=== PATIENT | male | born 1990 | race Caucasian/White ===

== ENCOUNTER 2018-03-02 19:43 | Inpatient (IN) | payer BC ==
[2018-03-02] MEDS ORDERED: Sodium Chloride 0.9% 1,000 ML IV STA (20:17)
[2018-03-02] MEDS ORDERED: levETIRAcetam 500 MG in Sodium Chloride 0.9% 100 ML IV STA (20:17)
[2018-03-02 20:53] LABS: BLOOD UREA NITROGEN 15 mg/dl (9-20); CALCIUM 10.1 mg/dL (8.4-10.2); GFR NON-AFRICAN AMERICAN > 60
[2018-03-02 20:57] LABS: BASO % 0.2 % (0.0-2.0); LYMPH # 0.9 K/uL (1.0-4.3); MEAN CELL VOLUME 90.9 fl (80.0-94.0); MEAN CORPUSCULAR HEMOGLOBIN 31.4 pg (27.0-31.0); MEAN CORPUSCULAR HGB CONC 34.6 g/dL (33.0-37.0); MEAN PLATELET VOLUME 8.7 fl (7.2-11.7); MONO # 0.6 K/uL (0.0-0.8); MONO % 3.4 % (0.0-10.0); NEUT # 16.3 K/uL (1.8-7.0); NEUT % 91.4 % (50.0-75.0); PLATELET COUNT 260 K/uL (130-400); RBC 5.09 Mil/uL (4.40-5.90); RED CELL DISTRIBUTION WIDTH 13.1 % (11.5-14.5); WHITE BLOOD COUNT 17.9 K/uL (4.8-10.8)
--- NOTE | 2018-03-02 21:32 | ED PDOC ---
HPI: Seizure Time Seen by Provider: 03/02/18 19:51 Chief Complaint (Nursing): Seizure History Per: Patient History/Exam Limitations: no limitations Recent Seizure Activity Began: Just Before Arrival Length Of Seizures (Duration): Minutes Quality Of Seizure: Generalized Additional Complaint(s): 28 year old M with history of seizure disorder and kidney stones presenting with seizure. States that normally he drinks a pint of hard liquor daily but has not drank alcohol in the past 24 hours and today and tremors and one witnessed seizure by the boyfriend, the patient does not remember this episode. States he is supposed to be taking Keppra 500mg and Klonopin 2mg but is inconsistent with the keppra and abuses the klonopin. Denies other drug use besides benzo abuse. Past Medical History Reviewed: Historical Data, Nursing Documentation, Vital Signs Vital Signs: Last Vital Signs Temp 98.4 F 03/02/18 19:45 Pulse 114 H 03/02/18 19:45 Resp 18 03/02/18 19:45 BP 142/94 H 03/02/18 19:45 Pulse Ox 100 03/02/18 19:45 - Medical History PMH: Kidney Stones, Seizures - Family History Family History: States: Unknown Family Hx - Home Medications Home Medications: Ambulatory Orders Medication Instructions Recorded Clonazepam [Klonopin] 2 mg PO DAILY 03/02/18 levETIRAcetam [Keppra] 500 mg PO DAILY 03/02/18 - Allergies Allergies/Adverse Reactions: Allergies Allergy/AdvReac Type Severity Reaction Status Date / Time No Known Allergies Allergy Verified 03/02/18 19:47 Review of Systems ROS Statement: Except As Marked, All Systems Reviewed And Found Negative Neurological: Positive for: Seizures. Negative for: Weakness, Numbness, Incoordination, Altered Mental Status Psych: Negative for: Suicidal ideation Physical Exam - Reviewed Nursing Documentation Reviewed: Yes Vital Signs Reviewed: Yes - Physical Exam Appears: Negative for: Well (Disheveled) Head Exam: Positive for: ATRAUMATIC, NORMAL INSPECTION, NORMOCEPHALIC Skin: Positive for: Normal Color, Warm, DRY Eye Exam: Positive for: EOMI, Normal appearance, PERRL ENT: Positive for: Normal ENT Inspection, Other (Tongue Fasiculations) Neck: Positive for: Normal, Painless ROM Cardiovascular/Chest: Positive for: Regular Rate, Rhythm Respiratory: Positive for: CNT, Normal Breath Sounds Gastrointestinal/Abdominal: Positive for: Normal Exam, Soft. 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 Negative for: Motor/Sensory Deficits - Laboratory Results Result Diagrams: 03/02/18 20:30 03/02/18 20:30 - ECG O2 Sat by Pulse Oximetry: 100 Pulse Ox Interpretation: Normal Medical Decision Making Medical Decision MakinPM Patient presenting with seizure after abrupt withdrawal of long-standing alcohol abuse --Patient tremulous, tachycardic, currently alert, and oriented --Patient likely suffering from alcohol abuse --Will treat with fluids, benzo, keppra 10PM --Dr. Hardin aware for admission for alcohol withdrawal with seizure --Will place in Tele for seizure precautions Disposition - Clinical Impression Clinical Impression: Alcohol withdrawal, Alcohol withdrawal seizure - Patient ED Disposition Is Patient to be Admitted: Yes - Disposition Disposition Time: 22:00 Condition: FAIR
[2018-03-02 22:03] LABS: LYMPHOCYTE 11 % (20-50); MONOCYTE 3 % (0-10); NEUTROPHIL 86 % (42-75); PLATELET ESTIMATE NORMAL (NORMAL); TOTAL CELLS COUNTED 100
[2018-03-02 22:04] LABS: ANISOCYTOSIS SLIGHT; LARGE PLATELETS PRESENT; OVALOCYTES SLIGHT; TEARDROP CELLS SLIGHT
[2018-03-02 22:20] LABS: PHENCYCLIDINE, UR NEGATIVE (NEGATIVE)
[2018-03-02 22:22] LABS: BARBITURATES, UR NEGATIVE (NEGATIVE); BENZODIAZEPINES, UR POSITIVE (NEGATIVE); OPIATES, UR POSITIVE (NEGATIVE)
[2018-03-02] MEDS ORDERED: Multivitamin (MVI) 10 ML, Thiamine 100 MG, Folic Acid 1 MG in Sodium Chloride 0.9% 1,00... IV ONE (22:53)
[2018-03-03 07:16] LABS: HEMOGLOBIN 14.3 g/dL (12.0-18.0); MEAN CELL VOLUME 90.9 fl (80.0-94.0); MEAN CORPUSCULAR HEMOGLOBIN 31.4 pg (27.0-31.0); MEAN CORPUSCULAR HGB CONC 34.5 g/dL (33.0-37.0); RBC 4.56 Mil/uL (4.40-5.90); RED CELL DISTRIBUTION WIDTH 13.1 % (11.5-14.5); WHITE BLOOD COUNT 14.2 K/uL (4.8-10.8)
[2018-03-03 07:52] LABS: LDL CHOLESTEROL 130 mg/dL (0-129)
[2018-03-03 07:54] LABS: ALB/GLOB RATIO 1.5 (1.0-2.1); ALBUMIN 4.6 g/dL (3.5-5.0); ALT/SGPT 26 U/L (21-72); AST/SGOT 29 U/L (17-59); BLOOD UREA NITROGEN 13 mg/dl (9-20); CALCIUM 9.2 mg/dL (8.4-10.2); GFR NON-AFRICAN AMERICAN > 60; HDL CHOLESTEROL 35 MG/DL (30-70)
[2018-03-03] MEDS ORDERED: CLONAZEPAM 1 MG PO SCH (09:00)
--- NOTE | 2018-03-03 10:04 | RAD ---
Date of service: 03/02/2018 HISTORY: seizure COMPARISON: No prior. FINDINGS: LUNGS: No active pulmonary disease. PLEURA: No significant pleural effusion identified, no pneumothorax apparent. CARDIOVASCULAR: No aortic atherosclerotic calcification present. Normal cardiac size. No pulmonary vascular congestion. OSSEOUS STRUCTURES: No significant abnormalities. VISUALIZED UPPER ABDOMEN: Normal. OTHER FINDINGS: None. IMPRESSION: No acute cardiopulmonary findings.
--- NOTE | 2018-03-03 12:13 | CT ---
Date of service: 03/02/2018 PROCEDURE: CT HEAD WITHOUT CONTRAST. HISTORY: seizure, head injury COMPARISON: None available. TECHNIQUE: Axial computed tomography images were obtained through the head/brain without intravenous contrast. Radiation dose: Total exam DLP = 806.3 mGy-cm. This CT exam was performed using one or more of the following dose reduction techniques: Automated exposure control, adjustment of the mA and/or kV according to patient size, and/or use of iterative reconstruction technique. FINDINGS: HEMORRHAGE: No intracranial hemorrhage. BRAIN: Normal araya-white matter differentiation and density are appreciated throughout the cerebrum and cerebellum with the brainstem appearing unremarkable as well. There is no mass effect. There is no suspicious extra-axial fluid collection and the midline brain anatomy appears diffusely unremarkable. VENTRICLES: Unremarkable. No hydrocephalus. CALVARIUM: No destructive bony lesion or displaced fracture identified including through the skullbase. PARANASAL SINUSES: Unremarkable as visualized. No significant inflammatory changes. MASTOID AIR CELLS: Unremarkable as visualized. No inflammatory changes. OTHER FINDINGS: None. IMPRESSION: Unremarkable unenhanced CT of the Head.
[2018-03-03] MEDS ORDERED: Potassium Chloride 20 mEq ER Tab PO ONE (15:39)
[2018-03-03] MEDS ORDERED: Dextrose 5%/0.45% NS 1,000 ML IV SCH (15:45)
--- NOTE | 2018-03-03 16:41 | CP.PCM.HP ---
History of Present Illness - History of Present Illness History of Present Illness: CC: Seizure. 28 y/o M, Hx of Seizure Disorder, Kidney stone, brought to ER [facility], [place] via EMS on 03/02/18 to be evaluated for Generalized Seizure activity at home on DOA before arrival to ER, witnessed by roommate, associated to nausea/vomiting, convulsions. Pt alert /oriented upon arrival of EMS. Worsening symptoms: Agitated, anxiety 2nd to alcohol withdrawal ( states normally he drink a pint of hard liquor daily, but has not drank in the last 24 hrs, also associated to opiates/methadone abuse as per Toxicology result. Aggravated factor: Non in compliance with Keppra. Pt denied Fever, diarrhea, abdominal pain, urinary symptoms, CP, palpitations, SOB, cough, AH, VH, SI, HI, sick contact, recent travel out of [facility]. Head CT: Unremarkable. CXR: No acute findings. Present on Admission - Present on Admission Any Indicators Present on Admission: No Review of Systems - Constitutional Constitutional: Other (negative) - EENT Eyes: Other (negative) Ears: Other (negative) Nose/Mouth/Throat: Other (negative) - Cardiovascular Cardiovascular: Rapid Heart Rate - Respiratory Respiratory: Other (negative) - Gastrointestinal Gastrointestinal: Nausea, Vomiting - Genitourinary Genitourinary: Other (negative) - Musculoskeletal Musculoskeletal: Other (negative) - Integumentary Integumentary: Other (negative) - Neurological Neurological: Convulsions, Tremor - Psychiatric Psychiatric: Anxiety - Endocrine Endocrine: Other (negative) - Hematologic/Lymphatic Hematologic: Other (negative) Past Patient History - Past Medical History & Family History Past Medical History?: Yes Pertinent Family History: Unknown - Past Social History Smoking Status: Light Smoker < 10 Cigarettes Daily Drugs: Opiates, Other (Methadone) Home Situation {Lives}: Other (boyfriend) - CARDIAC Hx Cardiac Disorders: No - PULMONARY Hx Respiratory Disorders: No - NEUROLOGICAL Hx Neurological Disorder: Yes Hx Seizures: Yes - HEENT Hx HEENT Problems: No - RENAL Hx Dialysis: Yes Hx Kidney Stones: Yes - ENDOCRINE/METABOLIC Hx Endocrine Disorders: No - HEMATOLOGICAL/ONCOLOGICAL Hx Blood Disorders: No - INTEGUMENTARY Hx Dermatological Problems: No - MUSCULOSKELETAL/RHEUMATOLOGICAL Hx Musculoskeletal Disorders: No Hx Falls: No - GASTROINTESTINAL Hx Gastrointestinal Disorders: No - GENITOURINARY/GYNECOLOGICAL Hx Genitourinary Disorders: No - PSYCHIATRIC Hx Psychophysiologic Disorder: Yes Hx Substance Use: Yes - SURGICAL HISTORY Hx Surgeries: Yes Hx Cholecystectomy: Yes - ANESTHESIA Hx Anesthesia: Yes Hx Anesthesia Reactions: No Hx Malignant Hyperthermia: No Has any member of the family had a problem w/ anesthesia?: No Meds Allergies/Adverse Reactions: Allergies Allergy/AdvReac Type Severity Reaction Status Date / Time No Known Allergies Allergy Verified 03/02/18 19:47 Physical Exam - Constitutional Appears: No Acute Distress - Head Exam Head Exam: NORMAL INSPECTION - Eye Exam Eye Exam: PERRL - ENT Exam ENT Exam: Normal Exam - Neck Exam Neck exam: Positive for: Normal Inspection - Respiratory Exam Respiratory Exam: NORMAL BREATHING PATTERN - Cardiovascular Exam Cardiovascular Exam: REGULAR RHYTHM - GI/Abdominal Exam GI & Abdominal Exam: Normal Bowel Sounds, Soft - Extremities Exam Extremities exam: Positive for: normal inspection - Back Exam Back exam: NORMAL INSPECTION - Neurological Exam Neurological exam: Alert, Oriented x3 Additional comments: mild tremors extremities, No focal motor/sensory deficit - Psychiatric Exam Psychiatric exam: Agitated, Anxious - Skin Skin Exam: Warm Results - Vital Signs Recent Vital Signs: Last Vital Signs Temp 97.8 F 03/03/18 15:53 Pulse 61 03/03/18 15:53 Resp 18 03/03/18 15:53 BP 132/76 03/03/18 15:53 Pulse Ox 99 03/03/18 15:53 reviewed Alexus - Labs Result Diagrams: 03/04/18 06:15 03/04/18 06:15 Labs: Laboratory Results - last 24 hr 03/02/18 03/02/18 03/02/18 20:30 20:30 21:07 WBC 17.9 H RBC 5.09 Hgb 16.0 Hct 46.3 MCV 90.9 MCH 31.4 H MCHC 34.6 RDW 13.1 Plt Count 260 MPV 8.7 Neut % (Auto) 91.4 H Lymph % (Auto) 5.0 L Moody % (Auto) 3.4 Eos % (Auto) 0.0 Baso % (Auto) 0.2 Neut # (Auto) 16.3 H Lymph # (Auto) 0.9 L Moody # (Auto) 0.6 Eos # (Auto) 0.0 Baso # (Auto) 0.0 Neutrophils % (Manual) 86 H Lymphocytes % (Manual) 11 L Monocytes % (Manual) 3 Platelet Estimate Normal Large Platelets Present Anisocytosis (manual) Slight Macrocytosis (manual) Slight Tear Drop Cells Slight Ovalocytes Slight Sodium 135 Potassium 3.8 Chloride 98 Carbon Dioxide 19 L Anion Gap 22 H BUN 15 Creatinine 0.9 Est GFR ( Amer) > 60 Est GFR (Non-Af Amer) > 60 Random Glucose 141 H Calcium 10.1 Magnesium 2.2 Total Bilirubin AST ALT Alkaline Phosphatase Total Protein Albumin Globulin Albumin/Globulin Ratio Triglycerides Cholesterol LDL Cholesterol Direct HDL Cholesterol TSH 3rd Generation Urine Opiates Screen Positive H Urine Methadone Screen Positive H Ur Barbiturates Screen Negative Ur Phencyclidine Scrn Negative Ur Amphetamines Screen Negative U Benzodiazepines Scrn Positive U Oth Cocaine Metabols Negative U Cannabinoids Screen Negative Alcohol, Quantitative < 10 03/03/18 03/03/18 04:00 06:45 WBC 14.2 H RBC 4.56 Hgb 14.3 Hct 41.5 MCV 90.9 MCH 31.4 H MCHC 34.5 RDW 13.1 Plt Count 224 MPV Neut % (Auto) Lymph % (Auto) Moody % (Auto) Eos % (Auto) Baso % (Auto) Neut # (Auto) Lymph # (Auto) Moody # (Auto) Eos # (Auto) Baso # (Auto) Neutrophils % (Manual) Lymphocytes % (Manual) Monocytes % (Manual) Platelet Estimate Large Platelets Anisocytosis (manual) Macrocytosis (manual) Tear Drop Cells Ovalocytes Sodium 139 Potassium 3.5 L Chloride 102 Carbon Dioxide 27 Anion Gap 14 BUN 13 Creatinine 0.8 Est GFR ( Amer) > 60 Est GFR (Non-Af Amer) > 60 Random Glucose 106 Calcium 9.2 Magnesium Total Bilirubin 1.0 AST 29 ALT 26 Alkaline Phosphatase 59 Total Protein 7.7 Albumin 4.6 Globulin 3.0 Albumin/Globulin Ratio 1.5 Triglycerides 140 Cholesterol 178 LDL Cholesterol Direct 130 H HDL Cholesterol 35 TSH 3rd Generation 0.11 L Urine Opiates Screen Urine Methadone Screen Ur Barbiturates Screen Ur Phencyclidine Scrn Ur Amphetamines Screen U Benzodiazepines Scrn U Oth Cocaine Metabols U Cannabinoids Screen Alcohol, Quantitative reviewed J.P. - Imaging and Cardiology CT scan - head Status: Report reviewed by me (J.P.) Chest x-ray Status: Report reviewed by me (J.P.) Assessment & Plan (1) Alcohol withdrawal seizure Status: Acute Priority: High (2) History of alcohol abuse Status: Chronic Priority: High (3) Opioid abuse Status: Acute Priority: High (4) Methadone use disorder, mild, abuse Status: Acute Priority: High (5) Seizure disorder Status: Acute - Assessment and Plan (Free Text) Plan: F/U EKG, continue Keppra, Ativan, Klonopin, Protonix, Zofran and rest of Tx. - Date & Time Date: 03/03/18 Time: 11:30
--- NOTE | 2018-03-03 20:54 | CARD ---
APPROVED REPORT Date of service: 03/02/2018 EKG Measurement Heart [id number] <Conclusion> Normal sinus rhythm Normal ECG
[2018-03-04 08:35] LABS: ALB/GLOB RATIO 1.5 (1.0-2.1); ALBUMIN 4.3 g/dL (3.5-5.0); ALT/SGPT 37 U/L (21-72); AST/SGOT 71 U/L (17-59); BLOOD UREA NITROGEN 10 mg/dl (9-20); CALCIUM 9.1 mg/dL (8.4-10.2); GFR NON-AFRICAN AMERICAN > 60
[2018-03-04 08:39] LABS: HEMOGLOBIN 13.6 g/dL (12.0-18.0); MEAN CELL VOLUME 90.5 fl (80.0-94.0); MEAN CORPUSCULAR HEMOGLOBIN 32.3 pg (27.0-31.0); MEAN CORPUSCULAR HGB CONC 35.7 g/dL (33.0-37.0); RBC 4.22 Mil/uL (4.40-5.90); RED CELL DISTRIBUTION WIDTH 12.8 % (11.5-14.5); WHITE BLOOD COUNT 10.8 K/uL (4.8-10.8)
--- NOTE | 2018-03-04 12:01 | CP.PCM.CON ---
History of Present Illness - History of Present Illness History of Present Illness: Psychiatry consult CC: "I had a seizure from alcohol withdrawal." HPI: 28 yo male w/ h/o alcohol abuse, heroin abuse presents w/ seizures in the context of alcohol, opioid and benzodiazepine abuse and non-compliance with Keppra. Patient denies current heroin abuse, but patient had urine toxicology positive for Benzo, Opiates and Methadone. Patient reports that he has intermittent feelings of anxiety, but denies acute depression/AH/VH/SI/HI. PPHx: >10 substance abuse rehabs; +Outpatient psychiatry- reports that he is prescribed Adderall, Ambien and Klonopin; unclear if this is true PMHx: Seizure Disorder; Kidney Stones ALL: NKDA SHx: Lives w/ bf; h/o incarceration for possession of heroin; +drinks 3 pints alcohol/day; denies current opioid abuse, but Utox + for Opiates and Methadone; denies cig us Impression: 28 yo male w/ Alcohol Use Disorder, Opioid Use Disorder, Benzodiazepine Use Disorder. -Recommend to treat patient for alcohol withdrawal as per [facility] protocol -Recommend to gradually taper and stop Klonopin -Recommend alcohol/substance abuse rehab when patient is medically stable; patient is not sure if he wants rehab at this time but would benefit from referral to social service technician to discuss treatment options -No acute psychiatric admission indicated at this time. Past Patient History - Past Medical History & Family History Past Medical History?: Yes - Past Social History Smoking Status: Light Smoker < 10 Cigarettes Daily - CARDIAC Hx Cardiac Disorders: No - PULMONARY Hx Respiratory Disorders: No - NEUROLOGICAL Hx Seizures: Yes - HEENT Hx HEENT Problems: No - RENAL Hx Kidney Stones: Yes - ENDOCRINE/METABOLIC Hx Endocrine Disorders: No - HEMATOLOGICAL/ONCOLOGICAL Hx Blood Disorders: No - INTEGUMENTARY Hx Dermatological Problems: No - MUSCULOSKELETAL/RHEUMATOLOGICAL Hx Musculoskeletal Disorders: No Hx Falls: No - GASTROINTESTINAL Hx Gastrointestinal Disorders: No - GENITOURINARY/GYNECOLOGICAL Hx Genitourinary Disorders: No - PSYCHIATRIC Hx Substance Use: Yes - SURGICAL HISTORY Hx Surgeries: Yes Hx Cholecystectomy: Yes - ANESTHESIA Hx Anesthesia: Yes Hx Anesthesia Reactions: No Hx Malignant Hyperthermia: No Has any member of the family had a problem w/ anesthesia?: No Meds Allergies/Adverse Reactions: Allergies Allergy/AdvReac Type Severity Reaction Status Date / Time No Known Allergies Allergy Verified 03/02/18 19:47 - Medications Medications: Current Medications Clonazepam (Klonopin) 1 mg PO Q12 [facility] Last Admin: 03/04/18 08:16 Dose: 1 mg Dextrose/Sodium Chloride (Dextrose 5%/0.45% Ns 1000 Ml) 1,000 mls @ 80 mls/hr IV .[id number] [facility] Stop: 03/04/18 15:35 Last Admin: 03/03/18 16:44 Dose: 80 mls/hr Levetiracetam (Keppra) 250 mg PO Q12 [facility] Last Admin: 03/04/18 08:16 Dose: 250 mg Lorazepam (Ativan) 1 mg IVP Q4 PRN PRN Reason: Agitation Last Admin: 03/04/18 10:26 Dose: 1 mg Ondansetron HCl (Zofran Inj) 4 mg IVP Q4 PRN PRN Reason: Nausea/Vomiting Last Admin: 03/04/18 08:13 Dose: 4 mg Pantoprazole Sodium (Protonix Inj) 40 mg IVP DAILY [facility] Last Admin: 03/04/18 08:17 Dose: 40 mg Results - Vital Signs Recent Vital Signs: Last Vital Signs Temp 98.5 F 03/04/18 08:06 Pulse 50 L 03/04/18 09:00 Resp 18 03/04/18 08:06 BP 135/74 03/04/18 08:06 Pulse Ox 98 03/04/18 08:06 - Labs Result Diagrams: 03/04/18 06:15 03/04/18 06:15 Labs: Laboratory Results - last 24 hr 03/04/18 03/04/18 06:15 06:15 WBC 10.8 RBC 4.22 L Hgb 13.6 Hct 38.2 MCV 90.5 MCH 32.3 H MCHC 35.7 RDW 12.8 Plt Count 201 Sodium 137 Potassium 3.6 Chloride 97 L Carbon Dioxide 28 Anion Gap 16 BUN 10 Creatinine 0.8 Est GFR ( Amer) > 60 Est GFR (Non-Af Amer) > 60 Random Glucose 113 H Calcium 9.1 Total Bilirubin 1.0 AST 71 H D ALT 37 Alkaline Phosphatase 54 Total Protein 7.1 Albumin 4.3 Globulin 2.8 Albumin/Globulin Ratio 1.5
[2018-03-04] MEDS: Dextrose 5%/0.45% NS 1,000 ML IV SCH (14:06)
[2018-03-04] MEDS ORDERED: Bismuth Subsalicylate 262 mg Chew Tab PO PRN (16:34)
--- NOTE | 2018-03-04 17:03 | CP.PCM.PN ---
Subjective - Date & Time of Evaluation Date of Evaluation: 03/04/18 Time of Evaluation: 12:30 - Subjective Subjective: F/U Seizure anxious, Patient's family at bedside Objective - Vital Signs/Intake and Output Vital Signs (last 24 hours): Temp Pulse Resp BP Pulse Ox 98.9 F 45 L 20 116/68 98 03/04/18 16:05 03/04/18 16:05 03/04/18 16:05 03/04/18 16:05 03/04/18 16:05 - Medications Medications: Current Medications Bismuth Subsalicylate (Pepto Bismol) 524 mg PO Q6 PRN PRN Reason: Diarrhea Clonazepam (Klonopin) 1 mg PO Q12 [facility] Last Admin: 03/04/18 08:16 Dose: 1 mg Dextrose/Sodium Chloride (Dextrose 5%/0.45% Ns 1000 Ml) 1,000 mls @ 80 mls/hr IV .[id number] [facility] Stop: 03/05/18 13:45 Last Admin: 03/04/18 14:06 Dose: 80 mls/hr Levetiracetam (Keppra) 250 mg PO Q12 [facility] Last Admin: 03/04/18 08:16 Dose: 250 mg Lorazepam (Ativan) 1 mg IVP Q4 PRN PRN Reason: Agitation Last Admin: 03/04/18 14:36 Dose: 1 mg Ondansetron HCl (Zofran Inj) 4 mg IVP Q4 PRN PRN Reason: Nausea/Vomiting Last Admin: 03/04/18 08:13 Dose: 4 mg Pantoprazole Sodium (Protonix Inj) 40 mg IVP DAILY [facility] Last Admin: 03/04/18 08:17 Dose: 40 mg - Labs Labs: 03/04/18 06:15 03/04/18 06:15 - Constitutional Appears: No Acute Distress - Head Exam Head Exam: NORMAL INSPECTION - Eye Exam Eye Exam: PERRL - ENT Exam ENT Exam: Normal Exam - Neck Exam Neck Exam: Normal Inspection - Respiratory Exam Respiratory Exam: NORMAL BREATHING PATTERN - Cardiovascular Exam Cardiovascular Exam: REGULAR RHYTHM - GI/Abdominal Exam GI & Abdominal Exam: Soft, Normal Bowel Sounds - Extremities Exam Extremities Exam: Normal Inspection - Back Exam Back Exam: NORMAL INSPECTION - Neurological Exam Neurological Exam: Alert, Oriented x3 Additional comments: Mild tremors extremities, no focal motor/sensory deficit. - Psychiatric Exam Psychiatric exam: Anxious - Skin Skin Exam: Warm Assessment and Plan (1) Alcohol withdrawal seizure Status: Acute (2) Anxiety Status: Acute (3) Benzodiazepine withdrawal with complication Status: Acute (4) Bradycardia Status: Acute (5) History of substance abuse Status: Acute (6) Methadone use disorder, mild, abuse Status: Acute (7) Opioid abuse Status: Acute (8) Seizure disorder Status: Acute - Assessment and Plan (Free Text) Plan: Bradycardia, ECHO, f/iu Cardiac consult, coninue Ativan, Keppra, Klonopin and rest of Tx
--- NOTE | 2018-03-04 21:28 | CP.PCM.CON ---
History of Present Illness - History of Present Illness History of Present Illness: ASKED TO SEE PT FOR BRADYCARDIA. PT ADMITTED WITH SEIZURE X 1. HE STATES HE RAN OUT OF [employer] FOR 3 DAYS AND DRANK ALCOHOL TO ATTEMPT TO SUPPRESS SEIZURE. PT DENIES ANY CP, SOB, PALP, LH, DIZZINESS PRIOR TO SZ. HE WAS LAYING ON COUCH WHEN HE HAD HIS SZ. PT HAS NO HX OF HEART DISEASE. NO FAM HX OF SCD OR CAD. PTS HR IS 49 BPM ON TELE. HE DENIES SYNCOPAL EPISODES OUTSIDE OF HIS PRIOR SZ. Review of Systems - Constitutional Constitutional: As Per HPI. absent: Anorexia, Chills, Daytime Sleepiness, Excessive Sweating, Fatigue, Fever, Frequent Falls, Headache, Increased Appetite, Lethargy, Malaise, Night Sweats, Snoring, Sleep Apnea, Weight Gain, Weight Loss, Weakness, Other - EENT Eyes: As Per HPI. absent: Blind Spots, Blurred Vision, Change in Vision, Decreased Night Vision, Diplopia, Discharge, Dry Eye, Exophthalmos, Floaters, Irritation, Itchy Eyes, Loss of Peripheral Vision, Pain, Photophobia, Requires Corrective Lenses, Sees Flashes, Spots in Vision, Tunnel Vision, Other Visual Disturbances, Loss of Vision, Other Ears: As Per HPI. absent: Decreased Hearing, Ear Discharge, Ear Pain, Tinnitus, Abnormal Hearing, Disequilibrium, Dizziness, Other Nose/Mouth/Throat: As Per HPI. absent: Epistaxis, Nasal Congestion, Nasal Discharge, Nasal Obstruction, Nasal Trauma, Nose Pain, Post Nasal Drip, Sinus Pain, Sinus Pressure, Bleeding Gums, Change in Voice, Dental Pain, Dry Mouth, Dysphagia, Halitosis, Hoarsness, Lip Swelling, Mouth Lesions, Mouth Pain, Od ynophagia, Sore Throat, Throat Swelling, Tongue Swelling, Facial Pain, Neck Pain, Neck Mass, Other - Cardiovascular Cardiovascular: As Per HPI. absent: Acrocyanosis, Chest Pain, Chest Pain at Rest, Chest Pain with Activity, Claudication, Diaphoresis, Dyspnea, Dyspnea on Exertion, Edema, Irregular Heart Rhythm, Pain Radiating to Arm/Neck/Jaw, Leg Edema, Leg Ulcers, Lightheadedness, Orthopnea, Palpitations, Paroxysmal Nocturnal Dyspnea, Pedal Edema, Radiating Pain, Rapid Heart Rate, Slow Heart Rate, Syncope, Other - Respiratory Respiratory: As Per HPI. absent: Cough, Dyspnea, Hemoptysis, Dyspnea on Exertion, Wheezing, Snoring, Stridor, Pain on Inspiration, Chest Congestion, Excessive Mucous Production, Change in Mucous Color, Pain with Coughing, Other - Gastrointestinal Gastrointestinal: As Per HPI. absent: Abdominal Pain, Belching, Bloating, Change in Bowel Habits, Change in Stool Character, Coffee Ground Emesis, Constipation, Cramping, Diarrhea, Dyspepsia, Dysphagia, Early Satiety, Excessive Flatus, Fecal Incontinence, Heartburn, Hematemesis, Hematochezia, Loose Stools, Melena, Nausea, Odynophagia, Temesmus, Vomiting, Other - Genitourinary Genitourinary: As Per HPI. absent: Change in Urinary Stream, Difficulty Urinating, Dysuria, Flank Pain, Hematuria, Pyuria, Nocturia, Urinary Incontinence, Urinary Frequency, Urinary Hesitance, Urinary Urgency, Voiding Freq/Small Amts, Freq UTI, Hx Renal/Bladder Calculi, Hx /Renal Surgery, Bladder Distension, Other - Reproductive: Male Reproductive:Male: As Per HPI - Musculoskeletal Musculoskeletal: As Per HPI. absent: Abnormal Gait, Arthralgias, Atrophy, Back Pain, Deformity, Joint Swelling, Limited Range of Motion, Loss of Height, Muscle Cramps, Muscle Weakness, Myalgias, Neck Pain, Numbness, Radiating Pain into Limb, Stiffness, Tingling, Other - Integumentary Integumentary: As Per HPI. absent: Acne, Alopecia, Bleeding Lesions, Change in Hair, Change in Nails, Change in Pigmentation, Changing Lesions, Dry Skin, Erythema, Furuncle, Hirsutism, Lesions, New Lesions, Non-Healing Lesions, Photosensitivity, Pruritus, Rash, Skin Pain, Skin Ulcer, Sores, Striae, Swelling, Unusual Bruising, Wounds, Jaundice, Other - Neurological Neurological: As Per HPI. absent: Abnormal Gait, Abnormal Hearing, Abnormal Movements, Abnormal Speech, Behavioral Changes, Burning Sensations, Confusion, Convulsions, Disequilibrium, Dizziness, Numbness, Focal Weakness, Frequent Falls, Headaches, Lack of Coordination, Loss of Vision, Memory Loss, Paresthesias, Radicular Pain, Restless Legs, Sensory Deficit, Syncope, Tingling, Tremor, Vertigo, Weakness, Other Visual Disturbances, Other - Psychiatric Psychiatric: As Per HPI. absent: Abnormal Sleep Pattern, Anhedonia, Anxiety, Auditory Hallucinations, Behavioral Changes, Change in Appetite, Change in Libido, Confusion, Depression, Difficulty Concentrating, Hallucinations, Homicidal Ideation, Hopelessness, Irritability, Memory Loss, Mood Swings, Panic Attacks, Paranoia, Suicidal Ideation, Visual Hallucinations, Tactile Hallucinations, Other - Endocrine Endocrine: As Per HPI. absent: Change in Body Appearance, Change in Libido, Cold Intolorance, Deepening of Voice, Excessive Sweating, Fatigue, Flushing, Heat Intolorance, Increase in Ring/Shoe/Hat Size, Palpitations, Polydipsia, Polyphagia, Polyuria, Other - Hematologic/Lymphatic Hematologic: As Per HPI. absent: Easy Bleeding, Easy Bruising, Lymphadenopathy, Other Past Patient History - Past Medical History & Family History Past Medical History?: Yes - Past Social History Smoking Status: Former Smoker Chewing Tobacco Use: No Cigar Use: No Alcohol: Occasional Drugs: Opiates, Other (Methadone) Home Situation {Lives}: With Family Domestic Violence: Negative - CARDIAC Hx Cardiac Disorders: No - PULMONARY Hx Respiratory Disorders: No - NEUROLOGICAL Hx Neurological Disorder: Yes Hx Seizures: Yes - HEENT Hx HEENT Problems: No - RENAL Hx Dialysis: Yes Hx Kidney Stones: Yes - ENDOCRINE/METABOLIC Hx Endocrine Disorders: No - HEMATOLOGICAL/ONCOLOGICAL Hx Blood Disorders: No - INTEGUMENTARY Hx Dermatological Problems: No - MUSCULOSKELETAL/RHEUMATOLOGICAL Hx Musculoskeletal Disorders: No Hx Falls: No - GASTROINTESTINAL Hx Gastrointestinal Disorders: No - GENITOURINARY/GYNECOLOGICAL Hx Genitourinary Disorders: No - PSYCHIATRIC Hx Psychophysiologic Disorder: Yes Hx Substance Use: Yes - SURGICAL HISTORY Hx Surgeries: Yes Hx Cholecystectomy: Yes - ANESTHESIA Hx Anesthesia: Yes Hx Anesthesia Reactions: No Hx Malignant Hyperthermia: No Has any member of the family had a problem w/ anesthesia?: No Meds Home Medications: Home Medication List Medication Instructions Recorded Confirmed Type chlordiazePOXIDE [Chlordiazepoxide 10 mg PO Q12 #10 cap 03/05/18 Rx HCl] levETIRAcetam [Keppra] 500 mg PO DAILY #30 tab 03/05/18 Rx Allergies/Adverse Reactions: Allergies Allergy/AdvReac Type Severity Reaction Status Date / Time No Known Allergies Allergy Verified 03/02/18 19:47 - Medications Medications: Current Medications Bismuth Subsalicylate (Pepto Bismol) 524 mg PO Q6 PRN PRN Reason: Diarrhea Clonazepam (Klonopin) 1 mg PO Q12 [facility] Last Admin: 03/04/18 20:01 Dose: 1 mg Dextrose/Sodium Chloride (Dextrose 5%/0.45% Ns 1000 Ml) 1,000 mls @ 80 mls/hr I V .[id number] [facility] Stop: 03/05/18 13:45 Last Admin: 03/04/18 14:06 Dose: 80 mls/hr Levetiracetam (Keppra) 250 mg PO Q12 [facility] Last Admin: 03/04/18 20:01 Dose: 250 mg Lorazepam (Ativan) 1 mg IVP Q4 PRN PRN Reason: Agitation Last Admin: 03/04/18 20:01 Dose: 1 mg Ondansetron HCl (Zofran Inj) 4 mg IVP Q4 PRN PRN Reason: Nausea/Vomiting Last Admin: 03/04/18 08:13 Dose: 4 mg Pantoprazole Sodium (Protonix Inj) 40 mg IVP DAILY [facility] Last Admin: 03/04/18 08:17 Dose: 40 mg Zolpidem Tartrate (Ambien) 5 mg PO ONCE ONE Stop: 03/04/18 22:01 Physical Exam - Constitutional Appears: Non-toxic - Head Exam Head Exam: ATRAUMATIC, NORMAL INSPECTION, NORMOCEPHALIC - Eye Exam Eye Exam: EOMI, Normal appearance, PERRL. absent: Conjunctival injection, Nystagmus, Periorbital swelling, Periorbital tenderness, Scleral icterus Pupil Exam: NORMAL ACCOMODATION, PERRL. absent: Fixed, Irregular, Miosis, Mydriatic, Unequal - ENT Exam ENT Exam: Mucous Membranes Moist, Normal Exam. absent: Mucous Membranes Dry, Normal External Ear Exam, Normal Oropharynx, TM's Normal Bilaterally - Neck Exam Neck exam: Positive for: Normal Inspection. Negative for: Full Rom, Lymphadenopathy, Meningismus, Tenderness, Thyromegaly - Respiratory Exam Respiratory Exam: Clear to Auscultation Bilateral, NORMAL BREATHING PATTERN. absent: Accessory Muscle Use, Chest Wall Tenderness, Decreased Breath Sounds, Prolonged Expiratory Phase, Rales, Rhonchi, Wheezes, Respiratory Distress, Stridor - Cardiovascular Exam Cardiovascular Exam: REGULAR RHYTHM, +S1, +S2, Systolic Murmur. absent: Bradycardia, Tachycardia, Clicks, Diastolic murmur, Gallop, Irregular Rhythm, JVD, RRR, Rubs, +S4 - GI/Abdominal Exam GI & Abdominal Exam: Normal Bowel Sounds, Soft. absent: Bruit, Diminished Bowel Sounds, Distended, Firm, Guarding, Hernia, Hyperactive Bowel Sounds, Hypoactive Bowel Sounds, Mass, Organomegaly, Pulsatile Mass, Rebound, Rigid, Tenderness - Rectal Exam Rectal Exam: Deferred - Exam Exam: Circumcision, NORMAL INSPECTION. absent: Scrotal Swelling, Testicular Tenderness, Uretheral Discharge, Testicular Vertical Lie, Bladder Distension External exam: NORMAL EXTERNAL EXAM. absent: Ecchymosis, Erythema, Lacerations, Lesions, Swelling Speculum exam: NORMAL SPECULUM EXAM. absent: Cervical Discharge, Erythema, Foreign Body, Laceration, Tissue, Vaginal Bleeding, Vaginal Discharge Bimanual exam: NORMAL BIMANUAL EXAM. absent: Adenexal Mass, Adnexal, Cervical Motion Tendernes, Uterine Enlargement, Uterine Tenderness - Extremities Exam Extremities exam: Positive for: normal inspection, pedal pulses present. Negative for: calf tenderness, full ROM, joint swelling, normal capillary refill, pedal edema, tenderness - Back Exam Back exam: NORMAL INSPECTION. absent: CVA tenderness (L), CVA tenderness (R), FULL ROM, muscle spasm, paraspinal tenderness, rash noted, tenderness, vertebral tenderness - Neurological Exam Neurological exam: Alert, CN II-XII Intact, Normal Gait, Oriented x3, Reflexes Normal - Psychiatric Exam Psychiatric exam: Normal Affect, Normal Mood - Skin Skin Exam: Dry, Intact, Normal Color, Warm Results - Vital Signs Recent Vital Signs: Last Vital Signs Temp 98.2 F 03/04/18 20:35 Pulse 50 L 03/04/18 20:35 Resp 20 03/04/18 20:35 BP 137/79 03/04/18 20:35 Pulse Ox 98 03/04/18 20:35 - Labs Result Diagrams: 03/04/18 06:15 03/04/18 06:15 Labs: Laboratory Results - last 24 hr 03/04/18 03/04/18 06:15 06:15 WBC 10.8 RBC 4.22 L Hgb 13.6 Hct 38.2 MCV 90.5 MCH 32.3 H MCHC 35.7 RDW 12.8 Plt Count 201 Sodium 137 Potassium 3.6 Chloride 97 L Carbon Dioxide 28 Anion Gap 16 BUN 10 Creatinine 0.8 Est GFR ( Amer) > 60 Est GFR (Non-Af Amer) > 60 Random Glucose 113 H Calcium 9.1 Total Bilirubin 1.0 AST 71 H D ALT 37 Alkaline Phosphatase 54 Total Protein 7.1 Albumin 4.3 Globulin 2.8 Albumin/Globulin Ratio 1.5 - EKG Data EKG Interpreted by: Myself EKG shows normal: Sinus rhythm Rate: Bradycardia Assessment & Plan (1) Bradycardia Status: Acute (2) Benzodiazepine withdrawal with complication Status: Acute (3) Seizure disorder Status: Acute (4) History of substance abuse Status: Acute (5) Anxiety Status: Acute - Assessment and Plan (Free Text) Plan: PTS HR INCREASES WITH MOVEMENT. NO EVIDENCE OF HIGH GRADE HEART BLOCK. CHECK ECHO IN AM TO EVAL FOR STRUCTURAL HEART DISEASE. NO AVN BLOCKERS. 45 MIN TOTAL CARE TIME.
[2018-03-05] MEDS: Dextrose 5%/0.45% NS 1,000 ML IV SCH (04:02)
[2018-03-05 07:45] VITALS: PULSE 54; RESP 20
[2018-03-05 12:08] VITALS: BP 125/72; TEMP 98.4; O2SAT 98
--- NOTE | 2018-03-05 12:30 | CP.PCM.PN ---
Subjective - Date & Time of Evaluation Date of Evaluation: 03/05/18 Time of Evaluation: 12:30 - Subjective Subjective: no further complaints or seizures no syncope echo prelim, nml ef. Objective - Vital Signs/Intake and Output Vital Signs (last 24 hours): Temp Pulse Resp BP Pulse Ox 98.4 F 54 L 20 125/72 98 03/05/18 12:07 03/05/18 12:07 03/05/18 12:07 03/05/18 12:07 03/05/18 12:07 - Medications Medications: Current Medications Bismuth Subsalicylate (Pepto Bismol) 524 mg PO Q6 PRN PRN Reason: Diarrhea Clonazepam (Klonopin) 1 mg PO Q12 [facility] Last Admin: 03/05/18 08:47 Dose: 1 mg Dextrose/Sodium Chloride (Dextrose 5%/0.45% Ns 1000 Ml) 1,000 mls @ 80 mls/hr IV .[id number] [facility] Stop: 03/05/18 13:45 Last Admin: 03/05/18 04:02 Dose: 80 mls/hr Levetiracetam (Keppra) 250 mg PO Q12 [facility] Last Admin: 03/05/18 08:38 Dose: 250 mg Lorazepam (Ativan) 1 mg IVP Q4 PRN PRN Reason: Agitation Last Admin: 03/05/18 08:47 Dose: 1 mg Ondansetron HCl (Zofran Inj) 4 mg IVP Q4 PRN PRN Reason: Nausea/Vomiting Last Admin: 03/04/18 08:13 Dose: 4 mg Pantoprazole Sodium (Protonix Inj) 40 mg IVP DAILY [facility] Last Admin: 03/05/18 08:39 Dose: 40 mg - Labs Labs: 03/04/18 06:15 03/04/18 06:15 - Constitutional Appears: Well - Head Exam Head Exam: ATRAUMATIC, NORMAL INSPECTION, NORMOCEPHALIC - Eye Exam Eye Exam: EOMI, Normal appearance, PERRL. absent: Conjunctival injection, Nystagmus, Periorbital swelling, Periorbital tenderness, Scleral icterus Pupil Exam: NORMAL ACCOMODATION, PERRL - ENT Exam ENT Exam: Mucous Membranes Moist, Normal Exam. absent: Mucous Membranes Dry, Normal External Ear Exam, Normal Oropharynx, TM's Normal Bilaterally - Neck Exam Neck Exam: Full ROM, Normal Inspection. absent: Lymphadenopathy, Meningismus, Tenderness, Thyromegaly - Respiratory Exam Respiratory Exam: Clear to Ausculation Bilateral, NORMAL BREATHING PATTERN. absent: Accessory Muscle Use, Chest Wall Tenderness, Decreased Breath Sounds, Prolonged Expiratory Phase, Rales, Rhonchi, Wheezes, Respiratory Distress, Stridor - Cardiovascular Exam Cardiovascular Exam: REGULAR RHYTHM, +S1, +S2, Murmur. absent: Bradycardia, Tachycardia, Clicks, Diastolic murmur, Gallop, Irregular Rhythm, JVD, RRR, Rubs, +S4 - GI/Abdominal Exam GI & Abdominal Exam: Soft, Normal Bowel Sounds. absent: Bruit, Distended, Firm, Guarding, Rigid, Tenderness, Diminished Bowel Sounds, Hernia, Hyperactive Bowel Sounds, Hypoactive Bowel Sounds, Organomegaly, Pulsatile Mass, Rebound, Mass - Rectal Exam Rectal Exam: Deferred - Extremities Exam Extremities Exam: Full ROM, Normal Capillary Refill, Normal Inspection. absent: Calf Tenderness, Joint Swelling, Pedal Edema, Tenderness - Back Exam Back Exam: NORMAL INSPECTION. absent: CVA tenderness (L), CVA tenderness (R), Full ROM, muscle spasm, paraspinal tenderness, rash noted, tenderness, vertebral tenderness - Neurological Exam Neurological Exam: Alert, Awake, CN II-XII Intact, Normal Gait, Oriented x3. absent: Abnormal Gait, Altered, Motor Sensory Deficit, Reflexes Normal - Psychiatric Exam Psychiatric exam: Normal Affect, Normal Mood. absent: Agitated, Anxious, Depressed, Flat Affect, Homicidal Ideation, Manic, Suicidal Ideation - Skin Skin Exam: Dry, Intact, Normal Color, Warm. absent: Abrasion, Cyanosis, Diaphoretic, Erythema, Mottled, Pallor, Pallor, Petechiae, Rash, Urticaria, Vesicles Assessment and Plan (1) Benzodiazepine withdrawal with complication Status: Acute (2) Seizure disorder Status: Acute (3) History of substance abuse Status: Acute (4) Anxiety Status: Acute (5) Bradycardia Status: Acute - Assessment and Plan (Free Text) Plan: PT STABLE FROM CARDIAC PERSPECTIVE. IF DIZZINESS OR SYNCOPE OCCUR THEN HE SHOULD F/U OUTPT.
--- NOTE | 2018-03-05 16:56 | CP.PCM.DIS ---
Provider - Provider Date of Admission: 03/04/18 12:39 Attending physician: Bismark Buchanan MD Consults: 03/04/18 06:38 Psychiatry Consult Routine Comment: Consulting Provider: Haydee Hernandez Consulting Physician: Haydee Hernandez Reason for Consult: pt on klonopin 03/04/18 12:28 Social Work Referral Routine Comment: for substance abuse rehab Physician Instructions: Reason For Exam: for substance abuse rehab Social Work Referral Routine Comment: for substance abuse reab Physician Instructions: Reason For Exam: Refer to substance abuse treatment if agreeable 03/04/18 13:44 Neurology Consult Routine Comment: seizure Consulting Provider: Yaw Carrasquillo Consulting Physician: Yaw Carrasquillo Reason for Consult: seizure, etoh withdrawal 03/04/18 13:55 Cardiology Consult Routine Comment: sinus bradycardia Consulting Provider: Uday Reynolds Consulting Physician: Uday Reynolds Reason for Consult: sinus bradycardia Diagnosis - Discharge Diagnosis (1) Alcohol withdrawal seizure Status: Acute Priority: High (2) Anxiety Status: Acute (3) Benzodiazepine withdrawal with complication Status: Acute (4) Bradycardia Status: Acute (5) History of substance abuse Status: Acute (6) Methadone use disorder, mild, abuse Status: Acute Priority: High (7) Opioid abuse Status: Acute Priority: High (8) Seizure disorder Status: Acute Hospital Course - Lab Results Lab Results: Most Recent Lab Values WBC 10.8 K/uL (4.8-10.8) 03/04/18 06:15 RBC 4.22 Mil/uL (4.40-5.90) L 03/04/18 06:15 Hgb 13.6 g/dL (12.0-18.0) 03/04/18 06:15 Hct 38.2 % (35.0-51.0) 03/04/18 06:15 MCV 90.5 fl (80.0-94.0) 03/04/18 06:15 MCH 32.3 pg (27.0-31.0) H 03/04/18 06:15 MCHC 35.7 g/dL (33.0-37.0) 03/04/18 06:15 RDW 12.8 % (11.5-14.5) 03/04/18 06:15 Plt Count 201 K/uL (130-400) 03/04/18 06:15 MPV 8.7 fl (7.2-11.7) 03/02/18 20:30 Neut % (Auto) 91.4 % (50.0-75.0) H 03/02/18 20:30 Lymph % (Auto) 5.0 % (20.0-40.0) L 03/02/18 20:30 [place] % (Auto) 3.4 % (0.0-10.0) 03/02/18 20:30 Eos % (Auto) 0.0 % (0.0-4.0) 03/02/18 20:30 Baso % (Auto) 0.2 % (0.0-2.0) 03/02/18 20:30 Neut # (Auto) 16.3 K/uL (1.8-7.0) H 03/02/18 20:30 Lymph # (Auto) 0.9 K/uL (1.0-4.3) L 03/02/18 20:30 [place] # (Auto) 0.6 K/uL (0.0-0.8) 03/02/18 20:30 Eos # (Auto) 0.0 K/uL (0.0-0.7) 03/02/18 20:30 Baso # (Auto) 0.0 K/uL (0.0-0.2) 03/02/18 20:30 Neutrophils % (Manual) 86 % (42-75) H 03/02/18 20:30 Lymphocytes % (Manual) 11 % (20-50) L 03/02/18 20:30 Monocytes % (Manual) 3 % (0-10) 03/02/18 20:30 Platelet Estimate Normal (NORMAL) 03/02/18 20:30 Large Platelets Present 03/02/18 20:30 Anisocytosis (manual) Slight 03/02/18 20:30 Macrocytosis (manual) Slight 03/02/18 20:30 Tear Drop Cells Slight 03/02/18 20:30 Ovalocytes Slight 03/02/18 20:30 Sodium 137 mmol/l (132-148) 03/04/18 06:15 Potassium 3.6 MMOL/L (3.6-5.0) 03/04/18 06:15 Chloride 97 mmol/L (98-107) L 03/04/18 06:15 Carbon Dioxide 28 mmol/L (22-30) 03/04/18 06:15 Anion Gap 16 (10-20) 03/04/18 06:15 BUN 10 mg/dl (9-20) 03/04/18 06:15 Creatinine 0.8 mg/dl (0.8-1.5) 03/04/18 06:15 Est GFR ( Amer) > 60 03/04/18 06:15 Est GFR (Non-Af Amer) > 60 03/04/18 06:15 Random Glucose 113 mg/dL (75-110) H 03/04/18 06:15 Calcium 9.1 mg/dL (8.4-10.2) 03/04/18 06:15 Magnesium 2.2 MG/DL (1.6-2.3) 03/02/18 20:30 Total Bilirubin 1.0 mg/dl (0.2-1.3) 03/04/18 06:15 AST 71 U/L (17-59) H D 03/04/18 06:15 ALT 37 U/L (21-72) 03/04/18 06:15 Alkaline Phosphatase 54 U/L (38-126) 03/04/18 06:15 Total Protein 7.1 G/DL (6.3-8.2) 03/04/18 06:15 Albumin 4.3 g/dL (3.5-5.0) 03/04/18 06:15 Globulin 2.8 gm/dL (2.2-3.9) 03/04/18 06:15 Albumin/Globulin Ratio 1.5 (1.0-2.1) 03/04/18 06:15 Triglycerides 140 mg/DL (0-149) 03/03/18 06:45 Cholesterol 178 mg/dL (0-199) 03/03/18 06:45 LDL Cholesterol Direct 130 mg/dL (0-129) H 03/03/18 06:45 HDL Cholesterol 35 MG/DL (30-70) 03/03/18 06:45 Free T4 0.75 ng/dL (0.78-2.19) L 03/05/18 04:30 Total T3 0.831 nmol/L (1.49-2.60) L 03/05/18 04:30 TSH 3rd Generation 0.11 mIU/ML (0.46-4.68) L 03/03/18 06:45 Urine Opiates Screen Positive (NEGATIVE) H 03/02/18 21:07 Urine Methadone Screen Positive (NEGATIVE) H 03/02/18 21:07 Ur Barbiturates Screen Negative (NEGATIVE) 03/02/18 21:07 Ur Phencyclidine Scrn Negative (NEGATIVE) 03/02/18 21:07 Ur Amphetamines Screen Negative (NEGATIVE) 03/02/18 21:07 U Benzodiazepines Scrn Positive (NEGATIVE) 03/02/18 21:07 U Oth Cocaine Metabols Negative (NEGATIVE) 03/02/18 21:07 U Cannabinoids Screen Negative (NEGATIVE) 03/02/18 21:07 Alcohol, Quantitative < 10 mg/dl (0-10) 03/02/18 20:30 C. difficile Ag & Toxin Negative (NEGATIVE) 03/05/18 05:30 Discharge Exam - Head Exam Head Exam: ATRAUMATIC, NORMAL INSPECTION, NORMOCEPHALIC Discharge Plan - Discharge Medications Prescriptions: levETIRAcetam [Keppra] 500 mg PO DAILY #30 tab chlordiazePOXIDE [Chlordiazepoxide HCl] 10 mg PO Q12 #10 cap - Follow Up Plan Condition: FAIR Disposition: HOME/ ROUTINE Instructions: Seizures, Alcohol Withdrawal (DC) Additional Instructions: follow up with doctor in 1 week Referrals: Bismark Buchanan MD [Staff Provider] -
--- NOTE | 2018-03-05 22:04 | CARD ---
APPROVED REPORT Date of service: 03/05/2018 EXAM: Two-dimensional and M-mode echocardiogram with Doppler and color Doppler. Other Information Quality : GoodRhythm : Bradycardia INDICATION Abnormal EKG/Arrhythmia 2D DIMENSIONS IVSd0.89 (0.7-1.1cm)LVDd4.86 (3.9-5.9cm) LVOT Diameter1.84 (1.8-2.4cm)PWd0.65 (0.7-1.1cm) IVSs1.23 (0.8-1.2cm)LVDs3.00 (2.5-4.0cm) FS (%) 38.2 %PWs1.35 (0.8-1.2cm) M-Mode DIMENSIONS Left Atrium (MM)3.09 (2.5-4.0cm)IVSd0.88 (0.7-1.1cm) Aortic Root2.78 (2.2-3.7cm)LVDd4.86 (4.0-5.6cm) Aortic Cusp Exc.1.90 (1.5-2.0cm)PWd0.82 (0.7-1.1cm) IVSs1.13 cmFS (%) 35 % LVDs3.17 (2.0-3.8cm)PWs1.24 cm Aortic Valve AoV Peak Cdktvdvb624.3cm/sAoV VTI28.5cmAO Peak GR.11mmHg LVOT Peak Udsxwtho983.2cm/sLVOT VTI21.08cmAO Mean GR.5mmHg JORDAN (VMAX)0.65rc3CHJ (VTI)1.00cm2 Mitral Valve MV E Snqxeuho70.2cm/sMV DECEL [id number] A Ebdrjzut48.1cm/s MV RQE49rzI/A ratio3.8MVA (PHT)2.51cm2 TDI Lateral E' Peak V18.38cm/sMedial E' Peak V15.48cm/sE/Lateral E'4.6 E/Medial E'5.4 LEFT VENTRICLE The left ventricle is normal size. There is normal left ventricular wall thickness. The left ventricular systolic function is normal. The estimated ejection fraction is 60-65% No regional wall motion abnormalities noted.. The left ventricular diastolic function is normal. No left ventricle thrombus noted on this study. There is no ventricular septal defect visualized. There is no left ventricular aneurysm. There is no mass noted in the left ventricle. RIGHT VENTRICLE The right ventricle is normal size. There is normal right ventricular wall thickness. The right ventricular systolic function is normal. ATRIA The left atrium size is normal. The right atrium size is normal. The interatrial septum is intact with no evidence for an atrial septal defect. AORTIC VALVE The aortic valve is normal in structure. No aortic regurgitation is present. There is no aortic valvular stenosis. There is no aortic valvular vegetation. MITRAL VALVE The mitral valve is normal in structure. There is no evidence of mitral valve prolapse. There is no mitral valve stenosis. Mitral regurgitation is trace. TRICUSPID VALVE The tricuspid valve is normal in structure. There is no tricuspid valve regurgitation noted. There is no tricuspid valve prolapse or vegetation. There is no tricuspid valve stenosis. PULMONIC VALVE The pulmonary valve is normal in structure. There is trace pulmonic valvular regurgitation. There is no pulmonic valvular stenosis. GREAT VESSELS The aortic root is normal in size. The ascending aorta is normal in size. The pulmonary artery is normal. The IVC is normal in size and collapses >50% with inspiration. PERICARDIAL EFFUSION There is no pericardial effusion. There is no pleural effusion. <Conclusion> Normal transthoracic echocardiogram. The estimated ejection fraction is 65-70% Trace MR and IA
== END 2018-03-05 15:04 | disposition home or self-care (01) | DRG 897 ==
LOC: H.ER 19:43 → H.ERHOLD 22:50 → H.TEL 03-03 00:06 → OBSVTOIN 03-04 12:39 → H.TEL 03-04 13:25
PROVIDERS: ADMIT Internal Medicine Pulmonary Disease; ATTEND Internal Medicine Pulmonary Disease
DX: F10.239 Alcohol dependence with withdrawal, unspecified (principal); G40.909 Epilepsy, unspecified, not intractable, without status epilepticus; F13.239 Sedative, hypnotic or anxiolytic dependence with withdrawal, unspecified; Z91.14 Patient's other noncompliance with medication regimen; F11.10 Opioid abuse, uncomplicated; Y90.0 Blood alcohol level of less than 20 mg/100 ml; F17.210 Nicotine dependence, cigarettes, uncomplicated; R00.1 Bradycardia, unspecified; F41.9 Anxiety disorder, unspecified; R56.9 Unspecified convulsions

== ENCOUNTER 2018-05-27 15:31 | Emergency (ER) | payer BC ==
[2018-05-27 15:31] VITALS: BMI 25.2
[2018-05-27 15:40] VITALS: TEMP 99
--- NOTE | 2018-05-27 16:23 | ED PDOC ---
Upper Extremity Pain/Injury Time Seen by Provider: 05/27/18 15:36 Chief Complaint (Nursing): Upper Extremity Problem/Injury Chief Complaint (Provider): Upper Extremity Problem/Injury History Per: Patient, EMS History/Exam Limitations: no limitations Onset/Duration Of Symptoms: Days (4x) Additional Complaint(s): 28 year old male with a past medical history of alcohol and narcotic abuse (as per EMS) is brought into the ED by EMS for an evaluation of left elbow pain. Patient states that 1x month ago he fell while roller skating, sustaining a left elbow fracture. Patient had surgery 2x weeks ago to correct the fracture, and was placed in a cast and shoulder immobilizer afterwards. 4x days ago patient was taken into police custody, where he had his splint and immobilizer removed prematurely for fear that he would use them as weapons. Patient is requesting to get his elbow checked and re-splinted, as he was supposed to keep the splint on for 6x weeks after surgery. Patient is also requesting a referral for an orthopedic doctor [place], as he can no longer go to [place] where the surgeon is located. Otherwise: (-) physical complaints (-) fever. PMD: None Past Medical History Reviewed: Historical Data, Nursing Documentation, Vital Signs Vital Signs: Last Vital Signs Temp 99.0 F 05/27/18 15:37 Pulse 99 H 05/27/18 15:37 Resp 19 05/27/18 15:37 BP 142/98 H 05/27/18 15:37 Pulse Ox 100 05/27/18 15:37 LARRY Report Viewed: Yes - Medical History PMH: Kidney Stones, Seizures Other PMH: alcohol abuse, narcotic abuse as per EMS - Surgical History Surgical History: Cholecystectomy Other surgeries: left elbow surgery 04/2018. - Family History Family History: States: Unknown Family Hx - Home Medications Home Medications: Ambulatory Orders Medication Instructions Recorded chlordiazePOXIDE [Chlordiazepoxide 10 mg PO Q12 #10 cap 03/05/18 HCl] levETIRAcetam [Keppra] 500 mg PO DAILY #30 tab 03/05/18 Acetaminophen [Acetaminophen 8 650 mg PO Q8 PRN #21 tablet.er 05/27/18 Hour] Naproxen/Esomeprazole Mag [Vimovo 1 tab PO BID PRN #20 tab 05/27/18 Dr 500-20 mg Tablet] - Allergies Allergies/Adverse Reactions: Allergies Allergy/AdvReac Type Severity Reaction Status Date / Time No Known Allergies Allergy Verified 03/02/18 19:47 Review of Systems ROS Statement: Except As Marked, All Systems Reviewed And Found Negative Musculoskeletal: Positive for: Other (left elbow pain) Physical Exam - Reviewed Nursing Documentation Reviewed: Yes Vital Signs Reviewed: Yes - Physical Exam Comments: GENERAL APPEARANCE: Patient is awake, alert, oriented x 3, in no acute distress. Resting comfortably. SKIN: Warm, dry; (-) cyanosis. NECK: Supple, FROM EYES: (+) bilateral conjunctival injection CHEST AND RESPIRATORY: (-) rales, (-) rhonchi, (-) wheezes; breath sounds equal bilaterally. Respirations even and nonlabored. HEART AND CARDIOVASCULAR: (-) irregularity ENT: Mucus membranes moist. Airway patent, (-) stridor. LEFT UPPER EXTREMITY: 4cm healing linear surgical laceration to lateral aspect of left elbow. (-) erythema, (-) warmth (+) mild edema, (+) minimal tenderness. (+) slightly decreased ROM secondary to pain. Sensation and capillary refill intact. Remainder of upper extremity: nontender. (+) distal pulses NEURO AND PSYCH: Hyperactive. Mental status as above. Gait: steady. Speech: clear. (-) facial asymmetry - ECG O2 Sat by Pulse Oximetry: 100 (RA) Pulse Ox Interpretation: Normal Medical Decision Making Medical Decision Makin:40 Clinical impression: 28 year old male with an elbow fracture Initial plan: * XRay elbow left 3 views * toradol 30 mg IM * reevaluation 1700 Elbow XR: (+) surgical hardware in place (-) acute pathology as read by Rae PRINCE Patient placed in posterior long arm splint and shoulder immobilizer by aviation safety equipment technician. NV intact after placement. Educated on splint care. Patient to be provided with referral for ortho. Patient requesting Rx for Gabapentin refill. Advised he would have to obtain refill from PMD or ortho. On re-evaluation, patient reports improvement of symptoms. On exam, patient remains AAOx3, in no acute distress. Vitals stable. Lab / Diagnostic results d/w the patient in great detail. Diagnosis of acute elbow pain, post-operative pain d/w the patient. Based on history, exam and diagnostic results, plan will be for outpatient follow up with ortho. Patient instructed to follow-up with pmd / referral provided / the clinic in 1- 2 days without fail. Advised to take medication as prescribed. Return to the emergency room at any time for any new or worsening symptoms. Patient states he fully agrees with and understands discharge instructions. States that he agrees with the plan and disposition. Verbalized and repeated discharge instructions and plan. I have given the patient opportunity to ask any additional questions. Scribe Attestation: Documented by Cierra Harris, acting as a scribe for Cierra Garcia Provider Scribe Attestation: All medical record entries made by the Scribe were at my direction and personally dictated by me. I have reviewed the chart and agree that the record accurately reflects my personal performance of the history, physical exam, medical decision making, and the department course for this patient. I have also personally directed, reviewed, and agree with the discharge instructions and disposition. Disposition - Clinical Impression Clinical Impression: Radial head fracture, Postoperative pain, History of elbow surgery - Patient ED Disposition Is Patient to be Admitted: No Counseled Patient/Family Regarding: Studies Performed, Diagnosis, Need For Followup, Rx Given - Disposition Referrals: Sidney Talley III, MD [Staff Provider] - Disposition: Routine/Home Disposition Time: 17:15 Condition: STABLE Additional Instructions: The emergency medical care you received today was directed at your acute symptoms. If you were prescribed any medication, please fill it and take as directed. It may take several days for your symptoms to resolve. Return to the Emergency Department if your symptoms worsen, do not improve, or if you have any other problems. Please contact your doctor in 2 days for re-evaluation and follow up / or call one of the physicians/clinics you have been referred to that are listed on the Patient Visit Information form that is included in your discharge packet. Bring any paperwork you were given at discharge with you along with any medications you are taking to your follow up visit. Our treatment cannot replace ongoing med ical care by a primary care provider (PCP) outside of the emergency department. Prescriptions: Acetaminophen [Acetaminophen 8 Hour] 650 mg PO Q8 PRN #21 tablet.er PRN Reason: Pain, Moderate (4-7) Naproxen/Esomeprazole Mag [Vimovo Dr 500-20 mg Tablet] 1 tab PO BID PRN #20 tab PRN Reason: Pain, Moderate (4-7) Instructions: Elbow Fracture (DC), Postoperative Pain (DC), Managing Pain After Surgery Forms: [facility] (Bolivian) Print Language: SLOVENIAN - POA Present On Arrival: None
[2018-05-27 18:19] VITALS: BP 136/78; PULSE 78; RESP 18
--- NOTE | 2018-05-27 18:56 | RAD ---
Date of service: 05/27/2018 PROCEDURE: Radiographs of the left elbow. HISTORY: s/p surgical repair COMPARISON: No prior. TECHNIQUE: 3 views obtained. FINDINGS: BONES: No definitive acute fracture or destructive bony lesion identified. Select cortical discontinuity at the proximal metaphysis at the left radius is identified reflecting subacute or chronic fracture of the radial head with postoperative changes manifest by 2 compression screws at the left radial head. Soft tissue changes suggests more subacute than chronic nature. JOINTS: No subluxation or dislocation identified. No definite degenerative changes. SOFT TISSUES: Anterior distal humeral effusion displacing anterior fat pad. JOINT EFFUSION: None. OTHER FINDINGS: None IMPRESSION: No definitive acute fracture or dislocation left elbow with prior ORIF left radial head identified. Subacute or chronic fracture left radial head suspected as per above.
[2018-05-29 16:29] VITALS: O2SAT 100
== END 2018-05-27 18:19 | disposition home or self-care (01) ==
LOC: H.ER 15:31
DX: S52.122G Displaced fracture of head of left radius, subsequent encounter for closed fracture with delayed healing (principal); G89.18 Other acute postprocedural pain; Z87.442 Personal history of urinary calculi; M25.522 Pain in left elbow

== ENCOUNTER 2018-06-20 19:53 | Observation (INO) | payer BC ==
[2018-06-20 19:53] VITALS: BMI 25.2
[2018-06-20] MEDS ORDERED: Sodium Chloride 0.9% 1,000 ML IV STA (20:22)
--- NOTE | 2018-06-20 20:24 | ED PDOC ---
HPI: Hypertension/Hypotension Time Seen by Provider: 06/20/18 20:03 Chief Complaint (Nursing): High Blood Pressure Chief Complaint (Provider): Anxiety History Per: Patient, EMS History/Exam Limitations: no limitations Onset/Duration Of Symptoms: Mins (just prior to arrival) Current Symptoms Are (Timing): Still Present Additional Complaint(s): 28 year old male presents to the ED via EMS for evaluation of anxiety. Patient states today he started a new job and throughout the course of the day, took two extra doses of his 10mg Adderall and one extra dose of his 1mg Klonopin. Just prior to arrival, he states he fell asleep counting his pills, and when his boyfriend found him, called 911. Patient was easily arousable upon EMS arrival and gave them the same history. Denies suicidal / homicidal ideation, visual / auditory hallucinations, and other drug / alcohol use. PMD: none provided Past Medical History Reviewed: Historical Data, Nursing Documentation, Vital Signs Vital Signs: Last Vital Signs Temp 98.6 F 06/20/18 20:00 Pulse 68 06/20/18 20:00 Resp 16 06/20/18 20:00 BP 161/116 H 06/20/18 20:00 Pulse Ox 100 06/20/18 20:00 Primary Care Provider: Non [facility] Provider, - Medical History PMH: Anxiety, Kidney Stones, Chronic Kidney Disease, Seizures (alcohol withdrawal) Other PMH: ADHD - Surgical History Surgical History: Cholecystectomy Other surgeries: elbow surgery - Family History Family History: States: No Known Family Hx - Social History Current smoker - smoking cessation education provided: Yes Alcohol: Other (recovering alcoholic, cannot remember last drink) Drugs: Prescription medications (adderall, klonopin) - Home Medications Home Medications: Ambulatory Orders Medication Instructions Recorded Acetaminophen [Acetaminophen 8 650 mg PO Q8 PRN #21 tablet.er 05/27/18 Hour] Dextroamphetamine/Amphetamine 10 mg PO TID 06/20/18 [Adderall 10 mg Tablet] Zolpidem [Ambien] 10 mg PO HS 06/20/18 clonazePAM [Klonopin] 1 mg PO BID 06/20/18 - Allergies Allergies/Adverse Reactions: Allergies Allergy/AdvReac Type Severity Reaction Status Date / Time No Known Allergies Allergy Verified 06/21/18 14:34 Review of Systems ROS Statement: Except As Marked, All Systems Reviewed And Found Negative (as per HPI) Neurological: Positive for: Other (syncopal episode) Psych: Positive for: Anxiety. Negative for: Suicidal ideation (or homicidal ideation), Other (visual or auditory hallucinations) Physical Exam - Reviewed Nursing Documentation Reviewed: Yes Vital Signs Reviewed: Yes - Physical Exam Appears: Positive for: No Acute Distress Head Exam: Positive for: ATRAUMATIC, NORMOCEPHALIC Skin: Positive for: Warm, Dry Eye Exam: Positive for: EOMI, Other (bilateral pupils equal at 6mm and minimally reactive to light) ENT: Positive for: Other (dry mucus membranes) Neck: Positive for: Painless ROM, Supple Cardiovascular/Chest: Positive for: Regular Rate, Rhythm. Negative for: Murmur Respiratory: Positive for: Normal Breath Sounds. Negative for: Respiratory Distress Gastrointestinal/Abdominal: Positive for: Soft. Negative for: Tenderness Back: Positive for: Normal Inspection. Negative for: Decreased ROM Extremity: Positive for: Normal ROM. Negative for: Deformity Lymphatic: Negative for: Adenopathy Neurological/Psych: Positive for: Awake, Alert, Oriented (x3), Mood/Affect (anxious mood, normal affect). Negative for: Motor/Sensory Deficits - Laboratory Results Result Diagrams: 06/21/18 05:00 06/21/18 05:00 - ECG O2 Sat by Pulse Oximetry: 100 (RA) Pulse Ox Interpretation: Normal Medical Decision Making Medical Decision Making: Time: 2016 Initial Impression: anxiety Initial Plan: --Acetaminophen chemistry --Alcohol serum --CMP --Drug screen --Magnesium chemistry --Phosphorus chemistry --Salicylate chemistry --Troponin --U-dip --CBC with differential --PT / PTT --IV fluids --Place on shelter monitor --Accucheck --Reevaluation Monitor demonstrates marked BP elevation and episodes of tachycardia. [facility] BP needs more prolonged to be monitored due to BP elevation. Recommends ativan prn for agitation. 1045p Boyfriend in ER to give collateral information. He found patient on ground asleep almost under a table. The table had pills strewn all over it and what appeared to be bags of white powder that both the patient and boyfriend report were heroin. However pt said they were "old bags" and he didn't take any of it. These were hidden/thrown out prior to arrival of EMS/PD. 11p Pt attempted to leave ER. Given pt presents with medication overdose and will need 1:1 observation for elopement risk. DW pt need to stay in ER for his safety. Ativan ordered to relieve anxiousness. Scribe Attestation: Documented by Yara Paniagua, acting as a scribe for Lara Spencer MD. Provider Scribe Attestation: All medical record entries made by the Scribe were at my direction and personally dictated by me. I have reviewed the chart and agree that the record accurately reflects my personal performance of the history, physical exam, medical decision making, and the department course for this patient. I have also personally directed, reviewed, and agree with the discharge instructions and disposition. Disposition - Clinical Impression Clinical Impression: Amphetamine overdose, Anxiety, Uncontrolled hypertension Discussed With DrDominique: Krunal Estevez Comment: DISTRIBUTION SPECIALIST for [facility] Counseled Patient/Family Regarding: Studies Performed, Diagnosis - Disposition Disposition Time: 22:00 Condition: FAIR - Pt Status Changed To: Hospital Disposition Of: Observation - POA Present On Arrival: None
[2018-06-20 20:52] LABS: BASO % 0.5 % (0.0-2.0); EOS % 0.5 % (0.0-4.0); HEMOGLOBIN 15.2 g/dL (12.0-18.0); LYMPH # 3.1 K/uL (1.0-4.3); LYMPH % 34.7 % (20.0-40.0); MEAN CORPUSCULAR HEMOGLOBIN 32.3 pg (27.0-31.0); MEAN CORPUSCULAR HGB CONC 34.4 g/dL (33.0-37.0); MONO # 0.5 K/uL (0.0-0.8); MONO % 5.3 % (0.0-10.0); NEUT # 5.2 K/uL (1.8-7.0); NRBC % 0.1 % (0.0-0.0); RBC 4.69 Mil/uL (4.40-5.90); RED CELL DISTRIBUTION WIDTH 13.1 % (11.5-14.5); WHITE BLOOD COUNT 8.9 K/uL (4.8-10.8)
[2018-06-20 20:56] LABS: PROTHROMBIN TIME 11.5 Seconds (9.8-13.1)
[2018-06-20 20:59] LABS: PARTIAL THROMBOPLASTIN TIME 32.9 Seconds (25.6-37.1)
[2018-06-20 21:04] LABS: ACETAMINOPHEN < 10.0 ug/ml (10.0-30.0); SALICYLATE < 1.0 mg/dl
[2018-06-20 21:06] LABS: ALB/GLOB RATIO 1.6 (1.0-2.1); ALBUMIN 4.9 g/dL (3.5-5.0); ALT/SGPT 25 U/L (21-72); AST/SGOT 34 U/L (17-59); BLOOD UREA NITROGEN 14 mg/dl (9-20); CALCIUM 9.5 mg/dL (8.4-10.2); GFR NON-AFRICAN AMERICAN > 60
[2018-06-20 22:33] LABS: BENZODIAZEPINES, UR NEGATIVE (NEGATIVE)
[2018-06-20 23:04] LABS: OPIATES, UR POSITIVE (NEGATIVE); PHENCYCLIDINE, UR NEGATIVE (NEGATIVE)
[2018-06-20] MEDS ORDERED: Sodium Chloride 0.9% 1,000 ML IV SCH (23:45)
[2018-06-20 23:52] LABS: BARBITURATES, UR NEGATIVE (NEGATIVE)
[2018-06-21 06:07] LABS: BASO % 0.4 % (0.0-2.0); EOS % 0.6 % (0.0-4.0); HEMOGLOBIN 14.8 g/dL (12.0-18.0); LYMPH # 2.4 K/uL (1.0-4.3); LYMPH % 31.9 % (20.0-40.0); MEAN CORPUSCULAR HEMOGLOBIN 32.7 pg (27.0-31.0); MEAN CORPUSCULAR HGB CONC 34.8 g/dL (33.0-37.0); MEAN PLATELET VOLUME 8.4 fl (7.2-11.7); MONO # 0.5 K/uL (0.0-0.8); MONO % 5.9 % (0.0-10.0); NEUT # 4.7 K/uL (1.8-7.0); NEUT % 61.2 % (50.0-75.0); NRBC % 0.1 % (0.0-0.0); RBC 4.54 Mil/uL (4.40-5.90); WHITE BLOOD COUNT 7.6 K/uL (4.8-10.8)
[2018-06-21 06:23] LABS: ALB/GLOB RATIO 1.7 (1.0-2.1); ALBUMIN 4.5 g/dL (3.5-5.0); ALT/SGPT 27 U/L (21-72); AST/SGOT 33 U/L (17-59); BLOOD UREA NITROGEN 10 mg/dl (9-20); CALCIUM 9.1 mg/dL (8.4-10.2); GFR NON-AFRICAN AMERICAN > 60
--- NOTE | 2018-06-21 08:26 | CP.PCM.CON ---
History of Present Illness - History of Present Illness History of Present Illness: Psychiatry consult note CC: "I'm fine. HPI: 28 yo male w/ h/o alcohol abuse, heroin abuse, reports he is no longer abusing substances, presents after he took two extra Adderall and 1 extra Klonopin. He denies that it was a suicide attempt and has not made any suicidal ideations or threats to any staff members. He reports that he has been taking opioid pain medications due to a recent Left arm surgery. He denies acute depression/anxiety/AH/VH/paranoia/SI/HI. He is able to contract for safety. 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 -Continue outpatient psychiatric follow-up -No 1:1 or inpatient psychiatric admission indicated at this time. Past Patient History - Infectious Disease Hx of Infectious Diseases: None - Past Medical History & Family History Past Medical History?: Yes - Past Social History Smoking Status: Current Some Days Smoker - CARDIAC Hx Cardiac Disorders: No - PULMONARY Hx Respiratory Disorders: No - NEUROLOGICAL Hx Seizures: Yes (alcohol withdrawal) - HEENT Hx HEENT Problems: No - RENAL Hx Chronic Kidney Disease: Yes Hx Kidney Stones: Yes - ENDOCRINE/METABOLIC Hx Endocrine Disorders: No - HEMATOLOGICAL/ONCOLOGICAL Hx Blood Disorders: No - INTEGUMENTARY Hx Dermatological Problems: No - MUSCULOSKELETAL/RHEUMATOLOGICAL Hx Musculoskeletal Disorders: No Hx Falls: No - GASTROINTESTINAL Hx Gastrointestinal Disorders: No - GENITOURINARY/GYNECOLOGICAL Hx Genitourinary Disorders: No - PSYCHIATRIC Hx Anxiety: Yes Hx Substance Use: No - SURGICAL HISTORY Hx Cholecystectomy: Yes - ANESTHESIA Hx Anesthesia: Yes Hx Anesthesia Reactions: No Hx Malignant Hyperthermia: No Meds Allergies/Adverse Reactions: Allergies Allergy/AdvReac Type Severity Reaction Status Date / Time No Known Allergies Allergy Verified 06/20/18 20:02 - Medications Medications: Current Medications Chlordiazepoxide (Librium) 10 mg PO Q12 ANTHONY Sodium Chloride (Sodium Chloride 0.9%) 1,000 mls @ 100 mls/hr IV .Q10H ANTHONY Stop: 06/21/18 23:31 Last Admin: 06/21/18 03:14 Dose: 100 mls/hr Ibuprofen (Motrin Tab) 600 mg PO Q6 PRN PRN Reason: Pain, Mild (1-3) Levetiracetam (Keppra) 500 mg PO DAILY ANTHONY Lorazepam (Ativan) 1 mg IVP Q6 PRN PRN Reason: Anxiety Last Admin: 06/21/18 05:57 Dose: 1 mg Zolpidem Tartrate (Ambien) 5 mg PO HS PRN PRN Reason: Sleep Last Admin: 06/21/18 01:06 Dose: 5 mg Results - Vital Signs Recent Vital Signs: Last Vital Signs Temp 97.8 F 06/21/18 04:56 Pulse 62 06/21/18 04:56 Resp 18 06/21/18 04:56 BP 151/90 H 06/21/18 04:56 Pulse Ox 98 06/21/18 04:56 - Labs Result Diagrams: 06/21/18 05:00 06/21/18 05:00 Labs: Laboratory Results - last 24 hr 06/20/18 06/20/18 06/20/18 20:33 20:47 20:47 WBC RBC Hgb Hct MCV MCH MCHC RDW Plt Count MPV Neut % (Auto) Lymph % (Auto) [place] % (Auto) Eos % (Auto) Baso % (Auto) Neut # (Auto) Lymph # (Auto) [place] # (Auto) Eos # (Auto) Baso # (Auto) PT INR APTT Sodium 138 Potassium 4.4 Chloride 97 L Carbon Dioxide 32 H Anion Gap 13 BUN 14 Creatinine 0.9 Est GFR ( Amer) > 60 Est GFR (Non-Af Amer) > 60 POC Glucose (mg/dL) 118 H Random Glucose 110 Calcium 9.5 Phosphorus 3.3 Magnesium 1.7 Total Bilirubin 1.0 AST 34 ALT 25 Alkaline Phosphatase 69 Troponin I < 0.0120 Total Protein 7.9 Albumin 4.9 Globulin 3.0 Albumin/Globulin Ratio 1.6 Salicylates < 1.0 Urine Opiates Screen Urine Methadone Screen Acetaminophen < 10.0 L Ur Barbiturates Screen Ur Phencyclidine Scrn Ur Amphetamines Screen U Benzodiazepines Scrn U Oth Cocaine Metabols U Cannabinoids Screen Alcohol, Quantitative < 10 06/20/18 06/20/18 06/20/18 20:47 20:47 22:10 WBC 8.9 RBC 4.69 Hgb 15.2 Hct 44.1 MCV 94.0 D MCH 32.3 H MCHC 34.4 RDW 13.1 Plt Count 254 MPV 8.0 Neut % (Auto) 59.0 Lymph % (Auto) 34.7 [place] % (Auto) 5.3 Eos % (Auto) 0.5 Baso % (Auto) 0.5 Neut # (Auto) 5.2 Lymph # (Auto) 3.1 [place] # (Auto) 0.5 Eos # (Auto) 0.0 Baso # (Auto) 0.0 PT 11.5 INR 1.0 APTT 32.9 Sodium Potassium Chloride Carbon Dioxide Anion Gap BUN Creatinine Est GFR ( Amer) Est GFR (Non-Af Amer) POC Glucose (mg/dL) Random Glucose Calcium Phosphorus Magnesium Total Bilirubin AST ALT Alkaline Phosphatase Troponin I Total Protein Albumin Globulin Albumin/Globulin Ratio Salicylates Urine Opiates Screen Positive H Urine Methadone Screen Negative Acetaminophen Ur Barbiturates Screen Negative Ur Phencyclidine Scrn Negative Ur Amphetamines Screen Positive H U Benzodiazepines Scrn Negative U Oth Cocaine Metabols Negative U Cannabinoids Screen Negative Alcohol, Quantitative 06/21/18 06/21/18 05:00 05:00 WBC 7.6 RBC 4.54 Hgb 14.8 Hct 42.6 MCV 94.0 MCH 32.7 H MCHC 34.8 RDW 13.0 Plt Count 247 MPV 8.4 Neut % (Auto) 61.2 Lymph % (Auto) 31.9 [place] % (Auto) 5.9 Eos % (Auto) 0.6 Baso % (Auto) 0.4 Neut # (Auto) 4.7 Lymph # (Auto) 2.4 [place] # (Auto) 0.5 Eos # (Auto) 0.0 Baso # (Auto) 0.0 PT INR APTT Sodium 137 Potassium 3.9 Chloride 98 Carbon Dioxide 30 Anion Gap 13 BUN 10 Creatinine 0.9 Est GFR ( Amer) > 60 Est GFR (Non-Af Amer) > 60 POC Glucose (mg/dL) Random Glucose 101 Calcium 9.1 Phosphorus Magnesium Total Bilirubin 1.1 AST 33 ALT 27 Alkaline Phosphatase 64 Troponin I Total Protein 7.1 Albumin 4.5 Globulin 2.7 Albumin/Globulin Ratio 1.7 Salicylates Urine Opiates Screen Urine Methadone Screen Acetaminophen Ur Barbiturates Screen Ur Phencyclidine Scrn Ur Amphetamines Screen U Benzodiazepines Scrn U Oth Cocaine Metabols U Cannabinoids Screen Alcohol, Quantitative
[2018-06-21 08:29] VITALS: BP 151/99; PULSE 63; RESP 20; TEMP 98.1; O2SAT 100
--- NOTE | 2018-06-21 10:39 | CP.PCM.PCO ---
Assessment and Plan - Assessment and Plan (Free Text) Assessment: Patient seen and examined Alert awake and oriented, anxious expecting to be discharged today. Repeat blood pressure 122/74 Patient medically cleared for discharge. Patient psychiatrically cleared for discharge Follow up with PMD in 1 week. Educated on medication side effects. Discussed with Dr Everett who agrees with dc plan.
--- NOTE | 2018-06-21 11:11 | CP.PCM.HP ---
History of Present Illness - History of Present Illness History of Present Illness: 28 yo male with history of substance abuse and recent surgery presented to ED for evaluation of anxiety after taking extra doses of adderall and klonipin. Patient was noted to have elevated BP and was a risk for elopement overnight, ad mitted for further evaluation and management. Patient seen and examined at bedside this AM. Patient states he feels well. denies SI/HI. Patient states he did not mean to take extra doses and understands why it is not recommended to take medications not as prescribed. Patient denies chest pain, sob, palpitations, headaches, fever, chills, hallucinations. Meds: as per chart Allergies: as per chart Fam hx: non contributory Present on Admission - Present on Admission Any Indicators Present on Admission: No Review of Systems - Review of Systems All systems: reviewed and no additional remarkable complaints except (mentioned above) Past Patient History - Infectious Disease Hx of Infectious Diseases: None - Past Medical History & Family History Past Medical History?: Yes - Past Social History Smoking Status: Current Some Days Smoker - CARDIAC Hx Cardiac Disorders: No - PULMONARY Hx Respiratory Disorders: No - NEUROLOGICAL Hx Seizures: Yes (alcohol withdrawal) - HEENT Hx HEENT Problems: No - RENAL Hx Chronic Kidney Disease: Yes Hx Kidney Stones: Yes - ENDOCRINE/METABOLIC Hx Endocrine Disorders: No - HEMATOLOGICAL/ONCOLOGICAL Hx Blood Disorders: No - INTEGUMENTARY Hx Dermatological Problems: No - MUSCULOSKELETAL/RHEUMATOLOGICAL Hx Musculoskeletal Disorders: No Hx Falls: No - GASTROINTESTINAL Hx Gastrointestinal Disorders: No - GENITOURINARY/GYNECOLOGICAL Hx Genitourinary Disorders: No - PSYCHIATRIC Hx Anxiety: Yes Hx Substance Use: No - SURGICAL HISTORY Hx Cholecystectomy: Yes - ANESTHESIA Hx Anesthesia: Yes Hx Anesthesia Reactions: No Hx Malignant Hyperthermia: No Meds Allergies/Adverse Reactions: Allergies Allergy/AdvReac Type Severity Reaction Status Date / Time No Known Allergies Allergy Verified 06/20/18 20:02 Physical Exam - Constitutional Appears: Well, Non-toxic, No Acute Distress - Head Exam Head Exam: NORMAL INSPECTION - Eye Exam Eye Exam: Normal appearance - Neck Exam Neck exam: Positive for: Normal Inspection - Respiratory Exam Respiratory Exam: Clear to Auscultation Bilateral, NORMAL BREATHING PATTERN - Cardiovascular Exam Cardiovascular Exam: +S1, +S2 - GI/Abdominal Exam GI & Abdominal Exam: Soft - Neurological Exam Neurological exam: Alert, Oriented x3 - Psychiatric Exam Psychiatric exam: Normal Affect, Normal Mood - Skin Skin Exam: Normal Color, Warm Results - Vital Signs Recent Vital Signs: Last Vital Signs Temp 98.1 F 06/21/18 08:28 Pulse 63 06/21/18 08:28 Resp 20 06/21/18 08:28 BP 151/99 H 06/21/18 08:28 Pulse Ox 100 06/21/18 08:28 - Labs Result Diagrams: 06/21/18 05:00 06/21/18 05:00 Labs: Laboratory Results - last 24 hr 06/20/18 06/20/18 06/20/18 20:33 20:47 20:47 WBC RBC Hgb Hct MCV MCH MCHC RDW Plt Count MPV Neut % (Auto) Lymph % (Auto) [place] % (Auto) Eos % (Auto) Baso % (Auto) Neut # (Auto) Lymph # (Auto) [place] # (Auto) Eos # (Auto) Baso # (Auto) PT INR APTT Sodium 138 Potassium 4.4 Chloride 97 L Carbon Dioxide 32 H Anion Gap 13 BUN 14 Creatinine 0.9 Est GFR ( Amer) > 60 Est GFR (Non-Af Amer) > 60 POC Glucose (mg/dL) 118 H Random Glucose 110 Calcium 9.5 Phosphorus 3.3 Magnesium 1.7 Total Bilirubin 1.0 AST 34 ALT 25 Alkaline Phosphatase 69 Troponin I < 0.0120 Total Protein 7.9 Albumin 4.9 Globulin 3.0 Albumin/Globulin Ratio 1.6 Salicylates < 1.0 Urine Opiates Screen Urine Methadone Screen Acetaminophen < 10.0 L Ur Barbiturates Screen Ur Phencyclidine Scrn Ur Amphetamines Screen U Benzodiazepines Scrn U Oth Cocaine Metabols U Cannabinoids Screen Alcohol, Quantitative < 10 06/20/18 06/20/18 06/20/18 20:47 20:47 22:10 WBC 8.9 RBC 4.69 Hgb 15.2 Hct 44.1 MCV 94.0 D MCH 32.3 H MCHC 34.4 RDW 13.1 Plt Count 254 MPV 8.0 Neut % (Auto) 59.0 Lymph % (Auto) 34.7 [place] % (Auto) 5.3 Eos % (Auto) 0.5 Baso % (Auto) 0.5 Neut # (Auto) 5.2 Lymph # (Auto) 3.1 [place] # (Auto) 0.5 Eos # (Auto) 0.0 Baso # (Auto) 0.0 PT 11.5 INR 1.0 APTT 32.9 Sodium Potassium Chloride Carbon Dioxide Anion Gap BUN Creatinine Est GFR ( Amer) Est GFR (Non-Af Amer) POC Glucose (mg/dL) Random Glucose Calcium Phosphorus Magnesium Total Bilirubin AST ALT Alkaline Phosphatase Troponin I Total Protein Albumin Globulin Albumin/Globulin Ratio Salicylates Urine Opiates Screen Positive H Urine Methadone Screen Negative Acetaminophen Ur Barbiturates Screen Negative Ur Phencyclidine Scrn Negative Ur Amphetamines Screen Positive H U Benzodiazepines Scrn Negative U Oth Cocaine Metabols Negative U Cannabinoids Screen Negative Alcohol, Quantitative 06/21/18 06/21/18 05:00 05:00 WBC 7.6 RBC 4.54 Hgb 14.8 Hct 42.6 MCV 94.0 MCH 32.7 H MCHC 34.8 RDW 13.0 Plt Count 247 MPV 8.4 Neut % (Auto) 61.2 Lymph % (Auto) 31.9 [place] % (Auto) 5.9 Eos % (Auto) 0.6 Baso % (Auto) 0.4 Neut # (Auto) 4.7 Lymph # (Auto) 2.4 [place] # (Auto) 0.5 Eos # (Auto) 0.0 Baso # (Auto) 0.0 PT INR APTT Sodium 137 Potassium 3.9 Chloride 98 Carbon Dioxide 30 Anion Gap 13 BUN 10 Creatinine 0.9 Est GFR ( Amer) > 60 Est GFR (Non-Af Amer) > 60 POC Glucose (mg/dL) Random Glucose 101 Calcium 9.1 Phosphorus Magnesium Total Bilirubin 1.1 AST 33 ALT 27 Alkaline Phosphatase 64 Troponin I Total Protein 7.1 Albumin 4.5 Globulin 2.7 Albumin/Globulin Ratio 1.7 Salicylates Urine Opiates Screen Urine Methadone Screen Acetaminophen Ur Barbiturates Screen Ur Phencyclidine Scrn Ur Amphetamines Screen U Benzodiazepines Scrn U Oth Cocaine Metabols U Cannabinoids Screen Alcohol, Quantitative Assessment & Plan (1) Amphetamine overdose Status: Acute (2) Anxiety Status: Acute - Assessment and Plan (Free Text) Plan: available diagnostic data reviewed BP improving consult psych rest of plan as ordered
--- NOTE | 2018-06-21 11:46 | CARD ---
APPROVED REPORT Date of service: 06/20/2018 EKG Measurement Heart [id number] <Conclusion> Normal sinus rhythm Normal ECG
== END 2018-06-21 10:48 | disposition home or self-care (01) ==
LOC: H.ER 19:53 → H.ERHOLD 22:34 → H.TEL 06-21 00:29
PROVIDERS: ADMIT Family Medicine; ATTEND Family Medicine
DX: T43.621A Poisoning by amphetamines, accidental (unintentional), initial encounter (principal); F41.9 Anxiety disorder, unspecified; I12.9 Hypertensive chronic kidney disease with stage 1 through stage 4 chronic kidney disease, or unspecified chronic kidney disease; N18.9 Chronic kidney disease, unspecified; F90.9 Attention-deficit hyperactivity disorder, unspecified type; F17.200 Nicotine dependence, unspecified, uncomplicated; F10.21 Alcohol dependence, in remission
CPT/HCPCS: 36415; 80053; 82948; 83735; 84100; 84484; 85025; 85610; 85730; 93005; 96360; 96361; 96372; 96374; 99285; G0378; G0480; J2060; J7030

== ENCOUNTER 2018-06-21 14:31 | Emergency (ER) | payer BC ==
[2018-06-21 14:33] VITALS: BMI 25.1
[2018-06-21 14:34] VITALS: BP 117/78; PULSE 88; RESP 20; TEMP 97.6; O2SAT 99
--- NOTE | 2018-06-21 15:01 | ED PDOC ---
HPI: Psych/Substance Abuse Time Seen by Provider: 06/21/18 14:50 Chief Complaint (Nursing): Alcohol Ingestion Chief Complaint (Provider): Alcohol Ingestion History Per: Patient, EMS History/Exam Limitations: no limitations Additional Complaint(s): 28 year old male presents to the ED via EMS for evaluation s/p being found sleeping the lobby of his boyfriend's building. Patient admits to drinking today and states his boyfriend kicked him out, but now plans to head to [place] where his parents live. Of note, patient was seen in ED yesterday for Adderall abuse and was observed due to high blood pressure. Denies SI/HI and any physical complaints. PMD: none provided Past Medical History Reviewed: Historical Data, Nursing Documentation, Vital Signs Vital Signs: Last Vital Signs Temp 97.6 F 06/21/18 14:33 Pulse 88 06/21/18 14:33 Resp 20 06/21/18 14:33 BP 117/78 06/21/18 14:33 Pulse Ox 99 06/21/18 14:33 Primary Care Provider: Sree Gavin - Medical History PMH: Anxiety, Kidney Stones, Chronic Kidney Disease, Seizures (alcohol withdrawal) - Surgical History Surgical History: Cholecystectomy - Family History Family History: States: No Known Family Hx - Social History Alcohol: Other (hx of alcohol abuse, last drink today) Drugs: Prescription medications - Home Medications Home Medications: Ambulatory Orders Medication Instructions Recorded Acetaminophen [Acetaminophen 8 650 mg PO Q8 PRN #21 tablet.er 05/27/18 Hour] Dextroamphetamine/Amphetamine 10 mg PO TID 06/20/18 [Adderall 10 mg Tablet] Zolpidem [Ambien] 10 mg PO HS 06/20/18 clonazePAM [Klonopin] 1 mg PO BID 06/20/18 - Allergies Allergies/Adverse Reactions: Allergies Allergy/AdvReac Type Severity Reaction Status Date / Time No Known Allergies Allergy Verified 06/21/18 14:34 Review of Systems ROS Statement: Except As Marked, All Systems Reviewed And Found Negative Psych: Negative for: Suicidal ideation (or homicidal ideation) Physical Exam - Reviewed Nursing Documentation Reviewed: Yes Vital Signs Reviewed: Yes - Physical Exam Appears: Positive for: No Acute Distress Head Exam: Positive for: ATRAUMATIC, NORMOCEPHALIC Skin: Positive for: Normal Color, Warm Eye Exam: Positive for: Normal appearance, EOMI, PERRL Cardiovascular/Chest: Positive for: Regular Rate, Rhythm Respiratory: Positive for: Normal Breath Sounds. Negative for: Respiratory Distress Extremity: Positive for: Normal ROM (all extremities) Neurological/Psych: Positive for: Awake, Alert, Normal Tone, Oriented (x3), Mood/Affect (normal), Gait (steady, unassisted). Negative for: Motor/Sensory Deficits - ECG O2 Sat by Pulse Oximetry: 99 (RA) Pulse Ox Interpretation: Normal Medical Decision Making Medical Decision Making: Time: 1500 Initial Impression: alcohol use Initial Plan: --Patient appears clinically sober with steady gait, clear speech, and is aaox3. He is calm and cooperative in ED with a plan to go to his parents after discharge using public transportation. Return parameters discussed and encouraged alcohol cessation. ScribeAttestation: Documented Hermilo Paniagua acting as a scribe for Robel Cuellar PA-C. Provider ScribeAttestation: All medical record entries made by the Scribe were at my direction and personally dictated by me. I have reviewed the chart and agree that the record accurately reflects my personal performance of the history, physical exam, medical decision making, and the department course for this patient. I have also personally directed, reviewed, and agree with the discharge instructions and disposition. Disposition - Clinical Impression Clinical Impression: Alcohol abuse with intoxication - Patient ED Disposition Is Patient to be Admitted: No - Disposition Referrals: [facility] [Outside] Disposition: Routine/Home Disposition Time: 15:13 Condition: FAIR Instructions: Alcohol Use - When Is Drinking a Problem?
== END 2018-06-21 15:13 | disposition home or self-care (01) ==
LOC: H.ER 14:31
DX: F10.129 Alcohol abuse with intoxication, unspecified (principal); N18.9 Chronic kidney disease, unspecified; Z87.442 Personal history of urinary calculi